=== PATIENT | male | born 1950 | race American Indian/Alaskan Native ===

== ENCOUNTER 2016-11-04 07:28 | Observation (INO) | payer MEDICARE, BC ==
[2016-11-04 07:28] VITALS: PULSE 52; BMI 34.7
[2016-11-04 07:34] VITALS: TEMP 97.6
[2016-11-04] MEDS ORDERED: Sodium Chloride 0.9% 1,000 ML IV ONE (08:06)
--- NOTE | 2016-11-04 08:31 | C.PDOC ---
History Of Present Illness 66 year old male with PMH Asthma, A-fib, DM, Diverticulitis, HTN, CKD, Queen's palsy complains of headache for 3 weeks. Patient is unable to fully describe headache states occasional throbbing mostly to right side and radiates to back. He reports intermittent blurred vision and nausea. He states he was seen by opthomology and by his PCP Dr Eric Self. Patient states Dr Self wants him to get MRI. Additionally patient reports having LLQ abdominal pain for the past 4 days , described as mild and cramping. He states he has history of diverticulitis and this feels similar. He was seen by his GI doctor and prescribed levofloxacin and flagyl which he started taking yesterday, but pain worsened. Denies any fever, chills, diarrhea, hematochezia, vomiting, nausea, dizziness. Time Seen by Provider: 11/04/16 07:49 Chief Complaint (Nursing): Headache Past Medical History Vital Signs: Last Vital Signs Temp 97.6 F 11/04/16 14:56 Pulse 58 L 11/04/16 14:56 Resp 18 11/04/16 14:56 BP 158/92 H 11/04/16 14:56 Pulse Ox 97 11/04/16 15:55 - Medical History PMH: Asthma ( A CHILD), Atrial Fibrillation, Cardia Arrhythmia (AF), Diabetes , Diverticulitis, HTN, Hypercholesterolemia, Hyperlipidemia, Chronic Kidney Disease Denies: Depression Surgical History: Appendectomy, Cholecystectomy Family History: States: Unknown Family Hx - Social History Hx Tobacco Use: No Hx Alcohol Use: No Hx Substance Use: No - Immunization History Hx Tetanus Toxoid Vaccination: No Hx Influenza Vaccination: No Hx Pneumococcal Vaccination: No Review Of Systems Except As Marked, All Systems Reviewed And Found Negative. Constitutional: Negative for: Fever, Chills Eyes: Positive for: Vision Change (blurred) Cardiovascular: Negative for: Chest Pain Respiratory: Negative for: Shortness of Breath Gastrointestinal: Positive for: Nausea, Abdominal Pain Neurological: Positive for: Headache. Negative for: Weakness, Numbness Physical Exam - Physical Exam Appears: Non-toxic, No Acute Distress Skin: Warm, Dry, No Rash Head: Atraumatic Eye(s): bilateral: Normal Inspection, PERRL Nose: Normal Oral Mucosa: Moist Lips: Normal Appearing Neck: Normal ROM Gastrointestinal/Abdominal: Soft, Tenderness (LLQ and above umbilicus with soft reducible hernia) Extremity: Normal ROM Neurological/Psych: Oriented x3, Normal Speech, Other (no focal deficit) Additional Physical Exam Comments: Face: right facial paralysis, bells palsy baseline ED Course And Treatment - Laboratory Results Result Diagrams: 11/04/16 08:27 11/04/16 08:27 O2 Sat by Pulse Oximetry: 97 Medical Decision Making Medical Decision Making: Impression 66y/o M comes in with headache and abdominal pain Plan: * CT Abd/Pel * CMP, Lipase * CBC * MRI Brain * Reglan, IVFs * Urinalysis Progress: 820 spoke with Clair who states he sent Sent to neurologist Dr Figueroa for evaluation and MRI, not to ER. He had recent Carotid Doppler showed atherosclerosis ED-obs will order CT abd and MRI head ED OBSERVATION Discharge: Yes Date of observation admission: 11/04/16 Time of observation admission: 08:06 - Observation admission statement Patient is being placed in observation because:: Abdominal pain and Headache - Goals of Observation Goals of observation are:: IV hydration, labs and imaging - Progress Note Progress Note: 11/04/16 10:49 Patient continues to have abdominal pain. Additional order placed for Morphine 11/04/16 10:56 Labs show elevated BUN/CR. CT changed to oral contrast 11/04/16 12:32 Dr Self calls ED for status update. Inform that MRI was done, still pending radiology report. CT still pending 11/04/16 13:29 MRI radiology report reviewed, see full report. Impression: No intracranial hemorrhage or mass effect. The after mentioned findings are believe most consistent with extensive microvascular ischemic/infarct changes as detailed above. Other differentials are also detailed above. Right ethmoidal sinus inflammatory changes with asymmetrical swelling of the right nasal turbinates likely encroaching on the right nasal airway passages 11/04/16 14:32 CT completed, pending radiology report 11/04/16 14:45 Dr Self is in ED and evaluates patient, he requests additional test. CT is still pending. 11/04/16 15:30 CT reviewed: No acute abnormality. Reyes colonic diverticulosis without evidence of diverticulitis Contact Dr Self and fax the reports to his office, he wants discharge and to f.u in office. 11/04/16 15:55 Patient remained nontoxic and in no acute distress. He has no fever and vital signs stable. He reports abdominal pain has improved. Abdomen is soft, no rebound or guarding, and he was able to tolerate PO. I discussed all results and provide copy of lab and CT report. Patient feels comfortable going home and will be discharged. Patient was advised to follow up with DR Self Disposition - Disposition Disposition: HOME/ ROUTINE Disposition Time: 15:55 Condition: STABLE - POA Present On Arrival: None - Clinical Impression Clinical Impression: Headache, Diverticulosis - PA / [employer] DEVELOPER / Resident Statement MD/DO has reviewed & agrees with the documentation as recorded. - Scribe Statement The provider has reviewed the documentation as recorded by the Scribe (Fredy Tamayo) All medical record entries made by the Scribe were at my direction and personally dictated by me. I have reviewed the chart and agree that the record accurately reflects my personal performance of the history, physical exam, medical decision making, and the department course for this patient. I have also personally directed, reviewed, and agree with the discharge instructions and disposition.
[2016-11-04 08:32] LABS: BASO # 0.1 K/uL (0.0-0.2); BASO % 1.5 % (0.0-2.0); EOS # 0.2 K/uL (0.0-0.7); EOS % 4.6 % (0.0-4.0); LYMPH # 0.9 K/uL (1.0-4.3); LYMPH % 18.9 % (20.0-40.0); MEAN CELL VOLUME 97.1 fL (80.0-94.0); MEAN CORPUSCULAR HEMOGLOBIN 31.9 pg (27.0-31.0); MEAN CORPUSCULAR HGB CONC 32.9 g/dL (33.0-37.0); MEAN PLATELET VOLUME 10.6 fL (7.2-11.7); MONO # 0.6 K/uL (0.0-0.8); MONO % 12.4 % (0.0-10.0); NRBC % 0.2 % (0.0-2.0); WHITE BLOOD COUNT 4.8 K/uL (4.8-10.8)
[2016-11-04 08:57] LABS: POTASSIUM 3.9 mmol/L (3.6-5.2)
[2016-11-04 09:00] LABS: BILIRUBIN,TOTAL 0.8 mg/dL (0.2-1.3); CALCIUM 9.5 mg/dl (8.6-10.4); TOTAL PROTEIN 8.2 g/dL (6.3-8.3)
[2016-11-04] MEDS ORDERED: Iohexol 240 (50 ml) PO ONE (10:56)
[2016-11-04] MEDS ORDERED: Morphine 4 MG/ML VIAL ONE (10:58)
[2016-11-04] MEDS ORDERED: Iohexol 240 (50 ml) ONE (11:01)
[2016-11-04 11:47] LABS: RBC URINE < 1 /hpf (0-3); URINE BILIRUBIN NEGATIVE (NEGATIVE); URINE BLOOD NEGATIVE (NEGATIVE); URINE COLOR Yellow (YELLOW); URINE GLUCOSE (UA) NORMAL (Normal); URINE KETONE NEGATIVE (NEGATIVE); URINE LEUKOCYTE ESTERASE TRACE Leu/uL (Negative); URINE PROTEIN NEGATIVE (NEGATIVE); URINE UROBILINOGEN NORMAL mg/dL (0.2-1.0); WBC URINE 2 /hpf (0-5)
[2016-11-04 12:23] VITALS: O2SAT 97
--- NOTE | 2016-11-04 13:26 | MRI ---
PROCEDURE: MRI BRAIN WITHOUT CONTRAST HISTORY: constant MAZARIEGOS for 3 weeks COMPARISON: None. TECHNIQUE: Multiplanar, multisequence MR images of the brain were obtained without intravenous contrast enhancement. FINDINGS: HEMORRHAGE: No suspect hemorrhage DWI: No evidence of an acute or early subacute infarction. There is some motion artifact appreciated somewhat limiting this exam BRAIN PARENCHYMA: No mass effect or edema. There are multiple bilateral FLAIR and T2 hyperintensities that that appear a amorphous in the central michael, periventricular regions and deep white matter and subcortical locations. In. In this age group, multiple microvascular MX/ infarct changes are believe most likely. Vascularities demyelinization, gliosis and Lyme disease or on the differential. Microvascular ischemic changes. Spur conversation with the ER physician Dr. Whelan, there is no history of alcoholism no recent infusion to suggest a pontine myelinolysis VENTRICLES: . No hydrocephalus. CRANIUM: Unremarkable. ORBITS: Grossly unremarkable. PARANASAL SINUSES/MASTOIDS: Right nasal turbinate swelling and right moderate ethmoidal sinus inflammatory changes are suggested VASCULAR SYSTEM: Skull base flow voids intact. OTHER FINDINGS: None. IMPRESSION: No intracranial hemorrhage or mass effect. The after mentioned findings are believe most consistent with extensive microvascular ischemic/infarct changes as detailed above. Other differentials are also detailed above Right ethmoidal sinus inflammatory changes with asymmetrical swelling of the right nasal turbinates likely encroaching on the right nasal airway passages
[2016-11-04 14:56] VITALS: BP 158/92; PULSE 58; RESP 18
--- NOTE | 2016-11-04 15:15 | CT ---
PROCEDURE: CT Abdomen and Pelvis without intravenous contrast HISTORY: LLQ abd pain COMPARISON: 05/11/2014 TECHNIQUE: Without contrast.. Contrast Dose: 0 Radiation dose: Total exam DLP = 1086.04 mGy-cm. This CT exam was performed using one or more of the following dose reduction techniques: Automated exposure control, adjustment of the mA and/or kV according to patient size, and/or use of iterative reconstruction technique. FINDINGS: LOWER THORAX: Unremarkable. LIVER: Unremarkable. No gross lesion or ductal dilatation. GALLBLADDER AND BILE DUCTS: Unremarkable. PANCREAS: Unremarkable. No gross lesion or ductal dilatation. SPLEEN: Unremarkable. ADRENALS: Unremarkable. No mass. KIDNEYS AND URETERS: Left upper pole 1.6 cm rounded low-density lesion unchanged from prior examination of 2013. Probable cyst. 10 mm rounded fatty attenuation mass in the lower pole left kidney, unchanged from prior examination. 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 No renal calculus or hydronephrosis. VASCULATURE: Unremarkable. No aortic aneurysm. BOWEL: Reyes colonic diverticulosis. No evidence of diverticulitis. No bowel obstruction. APPENDIX: Not identified. No secondary findings to suggest acute appendicitis PERITONEUM: Unremarkable. No free fluid. No free air. LYMPH NODES: Unremarkable. No enlarged lymph nodes. BLADDER: Poorly distended. Grossly normal. REPRODUCTIVE: Normal prostate BONES: No acute fracture. Incidental L4 vertebral hemangioma. OTHER FINDINGS: None. IMPRESSION: No acute abnormality. Reyes colonic diverticulosis without evidence of diverticulitis. Additional minor findings as above.
== END 2016-11-04 15:55 | disposition home or self-care (01) ==
LOC: C.ER 07:28 → C.9OBSV 08:06
PROVIDERS: ADMIT Emergency Medicine; ATTEND Emergency Medicine
DX: K57.90 Diverticulosis of intestine, part unspecified, without perforation or abscess without bleeding (principal); J45.909 Unspecified asthma, uncomplicated; I48.91 Unspecified atrial fibrillation; I12.9 Hypertensive chronic kidney disease with stage 1 through stage 4 chronic kidney disease, or unspecified chronic kidney disease; N18.9 Chronic kidney disease, unspecified; E11.22 Type 2 diabetes mellitus with diabetic chronic kidney disease; R51 Headache
CPT/HCPCS: 70551; 74176; 80053; 80061; 81001; 82550; 83690; 85025; 85651; 96360; 96374; G0378; J2270; J2765; J7040; Q9966